=== PATIENT | female | born 1975 | race Caucasian/White ===

== ENCOUNTER → 2024-04-15 | Outpatient (REF) | payer OTHER | LOC: EEVIPCON 16:37 → M LAB REF 16:37 | PROVIDERS: ATTEND Podiatrist Foot & Ankle Surgery | DX: L03.032 Cellulitis of left toe (principal) ==

== ENCOUNTER → 2024-08-05 | Outpatient (CLI) | payer OTHER | LOC: M RAD 07:41 | PROVIDERS: ATTEND Podiatrist Foot & Ankle Surgery | DX: M65.872 Other synovitis and tenosynovitis, left ankle and foot (principal); R60.9 Edema, unspecified; G62.9 Polyneuropathy, unspecified; M77.32 Calcaneal spur, left foot ==